=== PATIENT | male | born 1955 | race Caucasian/White ===

== ENCOUNTER 2018-11-30 14:23 | Emergency (ER) | payer MEDICARE, OTHER ==
[~2018-11-30] VITALS: Ht 157.5 cm; Wt 47.6 kg
[~2018-11-30 14:23] MED LIST: BP meds; CLONAZEPAM0.5 MG PO; COGENTIN1 MG ORAL; Cholesterol Med; DESYREL50 MG PO; FERROUS SULFAT325 M2 ORAL; HALDOL5 MG ORAL; LEXAPRO10 MG ORAL; LISINOPRIL20 MG ORAL; LOPID600 MG ORAL; SEROQUEL XR300 MG ORAL; TRIAMTERENE-HC1 EAC7 ORAL; VERAPAMIL ER180 M1 PO; VIBRAMYCIN100 MG PO; ZETIA10 MG ORAL
[2018-11-30 14:40] VITALS: BP 160/91
--- NOTE | 2018-11-30 14:54 | Emergency Room Report ---
History of Present Illness General Chief Complaint: Eye Problems Source: Patient Present Illness HPI 53-year-old male with history of hypertension currently controlled with medication here complaining of minimal pain and swelling with yellow discharge from right eye times this morning. Denies trauma to the eye, fall, blurred vision. She reports that he woke up with his right eye shut with yellow stringy discharge. Denies photophobia, orbital pain, rhinorrhea, sinus pressure , headache, dizziness, vertigo, chest pain S OB. Complaining of irritation of the right eye and has been irrigating his eye with water. No other associated symptoms with his caregiver Allergies: Coded Allergies: PENICILLINS (Verified Allergy, Severe, 09/08/12) Patient History Past Medical History: see triage record Past Surgical History: unable to obtain Pertinent Family History: none Immunizations: UTD Reviewed Nursing Documentation: PMH: Agreed; PSxH: Agreed Nursing Documentation-PMH Past Medical History: No History, Except For Hx Cardiac Problems: Yes Hx Hypertension: Yes Hx Cancer: No Hx Neurological Problems: No Review of Systems All Other Systems: negative except mentioned in HPI Physical Exam Vital Signs Date Time Temp Pulse Resp B/P (MAP) Pulse Ox O2 Delivery O2 Flow Rate FiO2 11/30/18 14:26 98.2 77 20 94 Room Air Sp02 EP Interpretation: reviewed, normal General Appearance: normal inspection, well appearing, no apparent distress Head: normocephalic, atraumatic Eyes: bilateral eye normal inspection, bilateral eye PERRL, bilateral eye photophobia, bilateral eye other - yellow dc right eye, periorbital edema and erythema ENT: normal ENT inspection Neck: normal inspection, full range of motion, supple Respiratory: normal inspection, chest non-tender, lungs clear Cardiovascular #1: normal inspection, regular rate, rhythm, no edema Gastrointestinal: normal inspection, non tender, soft Rectal: deferred Genitourinary: no CVA tenderness Musculoskeletal: normal inspection, back normal Neurologic: normal inspection, alert, oriented x3 Psychiatric: normal inspection, judgement/insight normal Skin: normal color, warm/dry, rash - periorbital celluletic rash Lymphatic: normal inspection, no adenopathy Medical Decision Making PA Attestation All my diagnosis and treatment plans were reviewed ad discussed with my supervising physician Dr. Carvajal Diagnostic Impression: Primary Impression: Periorbital cellulitis of right eye Additional Impression: Conjunctivitis ER Course 53-year-old male with history of hypertension currently controlled with medication here complaining of minimal pain and swelling with yellow discharge from right eye times this morning. Denies trauma to the eye, fall, blurred vision. She reports that he woke up with his right eye shut with yellow stringy discharge. Denies photophobia, orbital pain, rhinorrhea, sinus pressure , headache, dizziness, vertigo, chest pain S OB. Complaining of irritation of the right eye and has been irrigating his eye with water. No other associated symptoms with his caregiver Ddx considered but are not limited to:conjunctivitis, periorbital cellulitis, foreign body right eye Vital signs: are WNL, pt. is afebrile H&PE are most consistent with bacterial conjunctivitis, periorbital cellulitis ORDERS: bactrim DS neosporin polymyxin ophth drop ED INTERVENTIONS: None required at this time. DISCHARGE: At this time pt. is stable for d/c to home. Will provide printed patient care instructions, and any necessary prescriptions. Care plan and follow up instructions have been discussed with the patient prior to discharge. Follow-up with steamship agent Last Vital Signs Date Time Temp Pulse Resp B/P (MAP) Pulse Ox O2 Delivery O2 Flow Rate FiO2 11/30/18 14:26 98.2 77 20 94 Room Air Disposition: HOME, SELF-CARE Condition: Stable Scripts Neomycin/Polymyxin/Dexameth (Maxitrol Eye Drops) 5 Ml Drops.susp 1 DROP RIGHT EYE EVERY 6 HOURS, #5 ML Prov: Cole Jimenez 11/30/18 Trimethoprim/Sulfamethoxazole 160/800* (BACTRIM DS TABLET*) 1 Each Tablet 1 TAB ORAL TWICE A DAY for 7 Days, #14 TAB Prov: Cole Jimenez 11/30/18 Patient Instructions: Bacterial Conjunctivitis, [id number], Cellulitis, Easy- to-Read Additional Instructions: Follow-up with your steamship agent if blurred vision. Take antibiotics as directed. Avoid contaminating or other eye change pillowcases wear protective sunglasses Cole Jimenez November 30, 2018 14:54
[2018-11-30] MEDS ORDERED: BACTRIM DS TAB1 EAC1 ORAL (14:58)
[2018-11-30] MEDS ORDERED: MAXITROL OPTH1 DROP RIGHT EYE (14:58)
[2018-11-30 15:10] VITALS: BP 134/82
== END 2018-11-30 15:10 | disposition home or self-care (01) ==
LOC: EMR 14:57
DX: L03.213 Periorbital cellulitis (principal); H10.9 Unspecified conjunctivitis; I10 Essential (primary) hypertension; Z88.0 Allergy status to penicillin
CPT/HCPCS: 99282